=== PATIENT | female | born 1980 | race Caucasian/White ===

== ENCOUNTER → 2017-11-22 10:01 | Outpatient (CLI) | payer OTHER, SELFPAY ==
[2017-11-22 11:03] LABS: Absolute Lymphocyte Count 0.73 X10^3/ul (0.83-4.51); Absolute Neutrophil Count 3.2 X10^3/uL (2.0-7.7); Basophil# 0.03 X10^3/uL; Basophil% 0.7 % (0-1); Eosinophils% 4.4 % (0-5); Hematocrit 42.8 % (37-47); Hemoglobin 14.1 g/dl (12.0-15.0); Lymphocyte # 0.73 X10^3/ul (4.0); Lymphocyte % 16.2 % (19-41); Mean Corp Hgb Conc 32.9 g/gl (32-36); Mean Corpuscular Hgb 32.8 pg (27.0-32.0); Mean Corpuscular Volume 99.5 fL (81-99); Mean Platelet Vol. 9.2 fl (6.2-12.0); Monocyte# 0.37 X10^3/uL; Monocyte% 8.2 % (0-10); Neutrophil # 3.17 X10^3/uL (2.7-7.7); Neutrophil % 70.3 % (47-70); Platelet Count 367 K/mm3 (150-450); RBC Distribution Width CV 11.2 % (11.6-14.6); RBC Distribution Width SD 40.2 fl (35.1-43.9); White Blood Count 4.5 K/mm3 (4.4-11.0)
[2017-11-22 11:12] LABS: POSITIVE COUNT NO; POSITIVE DIFFERENTIAL NO; POSITIVE MORPHOLOGY NO
[2017-11-22 11:35] LABS: Anion Gap 4 (5-15); BUN 9 mg/dL (7-18); BUN/Creat Ratio 9.6 RATIO (10-20); Calcium,Total 8.9 mg/dL (8.5-10.1); Chloride 105 mmol/L (98-107); Creatinine, Serum 0.94 mg/dL (0.55-1.02); EST Glomerular Filtration Rate 71 mL/min (>60); Est Glom Filt Rate - Afr Amer 86 mL/min (>60); Glucose 93 mg/dL (74-106); Potassium 3.6 mmol/L (3.5-5.1); Sodium Level 138 mmol/L (136-145); T4 Free Direct 0.99 ng/dL (0.76-1.46); Thyroid Stim Hormone (TSH) 1.03 uIU/mL (0.358-3.74)
[2017-11-22 11:39] LABS: Erythrocyte Sedimentation Rate 5 mm/hr (0-20)
[2017-11-23 10:34] LABS: Thyroid Peroxidase AB 20 IU/mL (0-34)
[2017-11-24 09:50] LABS: T3 Total - Triiodothyronine 1.27 ng/mL (0.6-1.81)
[2017-11-25 08:39] LABS: ANTINUCLEAR ANTIBODIES DIRECT Negative (Negative)
== END ==
PROVIDERS: Family Provider Family Medicine; PCP Family Medicine; Referring Provider Dermatology Pediatric Dermatology; Visit Provider Dermatology Pediatric Dermatology
DX: L29.8 Other pruritus (principal); T80.69XA Other serum reaction due to other serum, initial encounter
CPT/HCPCS: 36415; 80048; 84439; 84443; 84480; 85025; 85652; 86038; 86376

== ENCOUNTER → 2018-01-30 13:47 | Outpatient (CLI) | payer OTHER, SELFPAY ==
[2018-02-04 11:30] LABS: HPV Reflexed? NOT INDICATED
--- OUTSIDE RECORDS SUMMARY | 2018-05-06 04:27 | XMS RPT_ITS ---
:1980 Author Organization OHIP Care Team Providers Name Role Phone VEGA FONTAINE DO Attending Unavailable PHYSICIAN, NONE Primary Care Unavailable Ale Medina Attending Unavailable PROVIDER, UNKNOWN Referring Unavailable No, PCP Primary Care Unavailable Carol, Ale Attending Unavailable PROVIDER, UNKNOWN Referring Unavailable No, PCP Primary Care Unavailable Tami Steen Attending Unavailable Tami Steen Attending Unavailable Tami Steen Referring Unavailable Vega Fontaine Primary Care Unavailable Woody Verma Attending Unavailable Tami Steen Referring Unavailable Ale Medina Attending Unavailable Carol Ale Referring Unavailable Vega Fontaine Primary Care Unavailable PROBLEMS PROBLEMS DATE TYPE CONDITION / CODE ATTENDING STATUS SOURCE 01/30/2018 Unknown Z12.4 - Encounter Tami Steen [facility] Repository cervix / Z12.4(ICD-10) 2017 Admitting Idiopathic Ale Medina [facility] Diagnosis urticaria / System L50.1(ICD-10) Repository 10/27/2017 Admitting Dermatitis, Ale Medina [facility] Diagnosis unspecified / System L30.9(ICD-10) Repository PROCEDURES PROCEDURES No Procedure Records FoundRESULTS RESULTS SURGERY VISIT REPORT Observed: 02/23/2018 Status: F Source: [place] 10:10 AM REPOSITORY [facility] [address] [place] [address] OFFICE VISIT Date of Service: 02/23/18 MR#: [id number] Acct: [id number] Name: LITO JAY Rep #: [id number] : 1980 Provider: Woody Verma MD Age/Sex: 37/F Location: [facility] Status: Signed Intake Vital Signs02/23/18 Height 5 ft 6 in 02/23/18 Weight: 140 lb 02/23/18 Body Mass Index (BMI) 22.6 Intake Visit Reasons: L Itchy Nipple Drag Out Man Required: No Is patient in pain?: No Allergies No Known Allergies Allergy (Verified 02/23/18 10:00) Medications l-Norgest/E.estradiol-E.estrad [Daysee 0.15-0.03-0.01 mg Tab] 1 ea PO 02/22/15 [History Confirmed 02/23/18] PFSH Surgical History Hx of tonsillectomy (Acute) Family History Grandmother Colon cancer Mother Cancer Social History Smoking Status: Never smoker alcohol intake: current alcohol intake frequency: a few times a week HPI HPI HPI: LITO JAY, is a 37 F who presents to the office today for 2-month history of itching of the left breast. She described this as the nipple and periareolar region. She says she is having no symptoms on the other side. She says the left breast is having no discharge or pain she only described as itching and it is intermittent. She has tried creams have not helped. She had a mammogram and ultrasound which were normal. ROS General General: No weight change, appetite, fatigue, colon cancer, breast cancer or weakness Breast Additional Details: Itching of the left breast Cardio Cardiovascular: No murmur, pacemaker, heart disease, atrial fibrillation, high blood pressure, heart attack, heart stent, palpitations, shortness of breat with exertion or chest pain Psych Psychiatric: No depression or anxiety Resp Respiratory: No shortness of breath, No sleep apnea, No cough, No COPD, No asthma, No emphysema, No wheezing Gastro Gastrointestinal: No abdominal pain, No nausea or vomiting, No diarrhea, No constipation, No blood in stool, No acid reflux, No hemorrhoids, No ulcers, No gallbladder problem, No black,tarry stools Nitin Hematologic: No blood thinners Neuro Neurologic: No weakness Exam Const General: cooperative Orientation: alert, oriented x3 Resp Effort AND Inspection: normal respiratory effort Auscultation: clear to auscultation bilaterally Cardio Rate: regular rate Rhythm: regular rhythm Heart Sounds: no murmurs GI Inspection: non-distended Palpation: soft, nontender Assessment AND Plan Problems 1. Breast pain, left N64.4 Plan 1. The patient has noted that she is having itching of the left breast. She says it is not severe. She is not having any dryness or drainage from the nipple. She does not describe any nipple discharge. She has no pain deep in the breast. Her other breast is asymptomatic. She had a mammogram and ultrasound which were normal with a BI- RADS score of 1. 2. At this time I do not believe an MRI is warranted given her very young age as well as the lack of any masses on physical exam. The breast appears symmetric to the other side with no skin or visible differences from the other side. At this time I recommend continued observation. Woody Verma MD Pager: [facility] [address] [place] [address], [address] [place] [address] Office: Coding Level of Care Code Off vis,new,level 3 Diagnoses Breast pain, left N64.4 02/23/18 1010 <Electronically signed by Woody Verma MD> Date Woody Verma MD [facility] Signature: Date (if applicable) CC: Tami Steen MD BREAST LIMITED Observed: 02/06/2018 Status: F Source: [place] 9:28 AM REPOSITORY [facility] Imaging Services [address] [place] [address] Breast Limited Unilateral MR#: [id number] Acct: [id number] Name: MARCELLEVEGA LUIBenny Woodward Rep #: [id number] : 1980 F 37 From: Eliud Poe MD PCP: Vega Fontaine DO Status: REG CLI Study: Breast Limited Unilateral Date of Exam: 02/06/18 Exam# [id number] Ordering Dr: Tami Steen MD STUDY: ULTRASOUND BREAST - LEFT REASON FOR EXAM: Female, 37 years old. Pruritus of the left nipple region. TECHNIQUE: Axial and longitudinal images of the LEFT breast were performed with a high resolution ultrasound transducer. COMPARISON: Comparison is made with prior mammogram done earlier today. FINDINGS: LEFT Breast: The periareolar region was examined by ultrasound. There is homogeneous fibroglandular tissue. No solid or cystic mass lesion is seen. Clinical correlation is recommended. US/Breast Limited Unilateral IMPRESSION: Unremarkable sonographic examination of the periareolar region. ASSESSMENT CATEGORY: BIRADS Category 1: Negative. A letter regarding these results will be sent to the patient by the facility within 30 days. Electronically Signed: Eliud Poe MD at 10:49 EST Tel [phone], Service support , CC: Tami Steen MD; Vega Fontaine DO Cyber Ops Planner: Signed DIAG MAMM W/CAD, Observed: 02/06/2018 Status: F Source: [place] BILAT 9:28 AM REPOSITORY [facility] Imaging Services [address] [place] [address] DIAG MAMM W/CAD, BILAT MR#: [id number] Acct: [id number] Name: LITO JAY Rep #: [id number] : 1980 F 37 From: Eliud Poe MD PCP: Vega Fontaine DO Status: REG CLI Study: DIAG MAMM W/CAD, BILAT Date of Exam: 02/06/18 Exam# [id number] Ordering Dr: Tami Steen MD MAMMOGRAPHY - BILATERAL DIAGNOSTIC REASON FOR EXAM: Female, 37 years old. Left nipple itchiness for 2 months. PERTINENT HISTORY: Non-contributory. TECHNIQUE: Digital bilateral breast kerrie (3D mammographic acquisition) in the CC and MLO projections. 2-D mediolateral oblique (MLO) and craniocaudad (CC) views of both breasts were obtained. CAD: Full Field Digital Mammography with Computer Added Detection was performed. COMPARISON: None. Baseline examination. FINDINGS: Breast Composition: The breasts are heterogeneously dense, which may obscure small masses. There are no dominant masses or suspicious calcifications. No other significant abnormalities are identified. BI/DIAG MAMM W/CAD, BILAT IMPRESSION: Negative diagnostic mammogram. With the patient's history of itchiness of the left periareolar region, correlation with ultrasound is recommended. ASSESSMENT CATEGORY: BIRADS Category 0: Incomplete. Need additional imaging evaluation. A letter regarding these results will be sent to the patient by the facility within 30 days. Approximately 10% of breast cancers are not detected by mammography. A normal mammogram should not delay biopsy of a clinically suspicious abnormality. 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 of containers..01 ThinPrep Vial TYPE CODE TESTS RESULT OUT OF RANGE REFERENCE UNITS LAB L7400.0800 . Normal DIAGN Comment Result Comment: NEGATIVE FOR INTRAEPITHELIAL LESION AND MALIGNANCY. LAB L7400.0900 . Normal ADEQ Comment Result Comment: Satisfactory for evaluation. Endocervical and/or squamous metaplastic cells (endocervical component) are present. LAB L7400.1400 . Normal PERFORM Comment Result Comment: Anjelica Mariee Horse Riding Coach Or Instructor LAB L7400.2575 . Normal TEST METHOD Comment Result Comment: This liquid based ThinPrep(R) pap test was screened with the use of an image guided system. LAB L7400.2600 . Normal . COMM LAB L7400.2700 . Normal PAPSMR Comment Result Comment: The Pap smear is a screening test designed to aid in the detection of premalignant and malignant conditions of the uterine cervix. It is not a diagnostic procedure and should not be used as the sole means of detecting cervical cancer. Both false-positive and false-negative reports do occur. LAB L7400.2800 . Normal HPV RFLX Comment Result Comment: The HPV DNA reflex criteria were not met with this specimen result therefore, no HPV testing was performed. Performed at: [facility] - [facility] [address] [place] [id number] Licensed Club Manager: Esperanza Romero MD, Phone: [phone] Performed By: #### L7400.0350 #### [facility] (refer to report for specific site) refer to report for address and phone number CBC W/DIFF, AUTOMATED Collected: 11/22/2017 Status: F Source: [place] 10:07 AM REPOSITORY TYPE CODE TESTS RESULT OUT OF RANGE REFERENCE UNITS LAB L100.1000 4.4-11.0 K/mm3 Normal WBC 4.5 LAB L100.1200 4.2-5.4 M/mm3 Normal RBC 4.30 LAB L100.1300 12.0-15.0 g/dl Normal HGB 14.1 LAB L100.1400 37-47 % Normal HCT 42.8 LAB L100.1500 81-99 fL High MCV 99.5 LAB L100.1600 27.0-32.0 pg High MCH 32.8 LAB L100.1700 32-36 g/gl Normal MCHC 32.9 LAB L100.1810 11.6-14.6 % Low RDW CV 11.2 LAB L100.1820 35.1-43.9 fl Normal RDW SD 40.2 LAB L100.1900 150-450 K/mm3 Normal PLT 367 LAB L100.2000 6.2-12.0 fl Normal MPV 9.2 LAB L100.2100 47-70 % High NEUT% 70.3 LAB L100.2200 19-41 % Low LY% 16.2 LAB L100.2300 0-10 % Normal MONO% 8.2 LAB L100.2400 0-5 % Normal EO% 4.4 LAB L100.2500 0-1 % Normal BASO% 0.7 LAB L100.2550 0.0-0.9 % Normal IM GRAN % 0.200 Result Comment: IG% - Immature Granulocytes (promyelocytes, myelocytes and metamyelocytes) > 1% indicates that a LEFT SHIFT is Present. LAB L100.2620 2.0-7.7 X10 3/uL Normal Absolute Neut 3.2 LAB L100.2720 0.83-4.51 X10 3/ul Low Absolute Lymph 0.73 Performed By: #### L100.0100, L101.9900 #### [facility] [address] [place], [address] ERYTHROCYTE SED RATE Collected: 11/22/2017 Status: F Source: [place] 10:07 AM REPOSITORY TYPE CODE TESTS RESULT OUT OF RANGE REFERENCE UNITS LAB L102.0000 0-20 mm/hr Normal SED RATE 5 Performed By: #### L100.0100, L101.9900 #### [facility] [address] [place], [address] BASIC METABOLIC Collected: 11/22/2017 Status: F Source: [place] PROFILE (BMP) 10:07 AM REPOSITORY TYPE CODE TESTS RESULT OUT OF RANGE REFERENCE UNITS LAB L501.0100 74-106 mg/dL Normal GLU 93 Result Comment: Please note revised GLUCOSE reference range effective 2017. LAB L501.1000 7-18 mg/dL Normal BUN 9 LAB L501.1100 0.55-1.02 mg/dL Normal CREAT,SERUM 0.94 Result Comment: The validity of the calculated GFR AND GFRAA in patients over 70 years has not been determined. Clinical correlation is essential. LAB L501.1110 >60 mL/min Normal EST GFR 71 Result Comment: Non- GFR Calc LAB L501.1115 >60 mL/min Normal EST GFR - AA 86 Result Comment: GFR Calc LAB L501.1300 10-20 RATIO Low BUN/CRE 9.6 LAB L501.2200 8.5-10.1 mg/dL Normal CA 8.9 LAB L501.5300 136-145 mmol/L Normal NA 138 LAB L501.5600 3.5-5.1 mmol/L Normal K 3.6 LAB L501.5900 98-107 mmol/L Normal CL 105 LAB L501.6100 21.0-32.0 mmol/L Normal CO2 29.0 LAB L501.6200 5-15 Low GAP 4 Performed By: #### L500.2500, L501.9520, L506.0400 #### [facility] [address] [place], [address] THYROID STIM HORMONE Collected: 11/22/2017 Status: F Source: [place] (TSH) 10:07 AM REPOSITORY TYPE CODE TESTS RESULT OUT OF RANGE REFERENCE UNITS LAB L501.9520 0.358-3.74 uIU/mL Normal TSH 1.03 Performed By: #### L500.2500, L501.9520, L506.0400 #### [facility] [address] [place], [address] T4 FREE DIRECT Collected: 11/22/2017 Status: F Source: [place] 10:07 AM REPOSITORY TYPE CODE TESTS RESULT OUT OF RANGE REFERENCE UNITS LAB L506.0400 0.76-1.46 ng/dL Normal T4 FREE 0.99 DIRECT Performed By: #### L500.2500, L501.9520, L506.0400 #### [facility] [address] [place], [place], [address] THYROID PEROXIDASE AB Collected: 11/22/2017 Status: F Source: [place] 10:07 AM REPOSITORY TYPE CODE TESTS RESULT OUT OF RANGE REFERENCE UNITS LAB L3300.6900 0-34 IU/mL Normal TPO AB 20 6676 Result Comment: Performed at: [facility] [id number] Licensed Club Manager: Valdemar Zuniga PhD, Phone: [phone] Performed By: #### L3300.6900 #### [facility]er to [facility] for specific site) refer to report for address and phone number T3 TOTAL - TRIIODOTHYRONINE Collected: 11/22/2017 Status: F Source: [place] 10:07 AM REPOSITORY TYPE CODE TESTS RESULT OUT OF RANGE REFERENCE UNITS LAB L501.9186 0.6-1.81 ng/mL Normal T3 Total 1.27 Performed By: #### L501.9186 #### [facility] [address] [place], [address] ANTINUCLEAR ANTIBODIES Collected: 11/22/2017 Status: F Source: [place] DIRECT 10:07 AM REPOSITORY TYPE CODE TESTS RESULT OUT OF RANGE REFERENCE UNITS LAB L3100.5475 Negative Normal Negative LEILANI-DIRECT Result Comment: Performed at: - [facility] [address], [place], [place] [id number] Licensed Club Manager: Valdemar Zuniga PhD, Phone: [phone] Performed By: #### L3100.5475 #### [facility] (refer to report for specific site) refer to report for address and phone number Observed: 2017 Status: F Source: [facility] SURGICAL PATHOLOGY 3:00 PM SYSTEM REPOSITORY [id number] [facility] PATHOLOGY AND [facility]ORATORY MEDICINE [address] [place] [address] FINAL SURGICAL PATHOLOGY REPORT NAME: LITO JAY N [id number] : 1980 37 Y F BILLING NO.: [id number] LOCATION: 1SPO PROCEDURE 2017 DATE: SURGEON: ALE MEDINA MD RECEIVED 11/24/2017 DATE: ATTENDING: ALE MEDINA MD REPORT DATE: 12/01/2017 COPIES TO: DIAGNOSIS: SKIN, LEFT ANTERIOR DISTAL THIGH, PUNCH (DIF) - NON-SPECIFIC GRANULAR COMPLEMENT C3 IMMUNOREACTIVITY ALONG THE BASEMENT MEMBRANE Comment: Direct antibody localization demonstrates 1+ immunoreactivity for complement C3 in a granular fashion along the basement membrane. This finding alone is non-specific. There is no evidence of immunoreactivity for immunoglobulins IgG, IgM, IgA, or fibrinogen on sections of frozen skin. JAW/JAW <Sign Out Dr. Gallagher> JANETH GAXIOLA M.D. CLINICAL INFORMATION: Erythematous evanescent linear edematous plaques, dermatographism SPECIMEN: SKIN GROSS DESCRIPTION: Skin left anterior distal thigh Received in polytransport buffer is a core of skin and underlying tissue 0.3 cm in depth and diameter. The specimen is entirely submitted for direct immunofluorescence. (1 ns, 1) JCK/SHYLA Disclaimer: The following statement applies to all immunohistochemistry, in situ hybridization, molecular studies, and immunofluorescence testing. The use of one or more reagents in the above tests is regulated as an analyte specific reagent (ASR). These tests were developed and their performance characteristics determined by the clinical laboratories of [facility]. They have not been cleared by the US Food and Drug Administration (FDA). The FDA has determined that such clearance or approval is not necessary. All the above immunostains were performed on paraffin embedded tissue. Appropriate positive and negative controls (where applicable) were run in parallel with the patient's specimen; these controls showed expected staining pattern, with acceptable intensity of staining. Immunohistochemical assays have not been validated on decalcified tissues. Results should be interpreted with caution given the raised possibility of false negativity on decalcified specimens. Professional Performing Location: [address] [address]. DEPARTMENT OF PATHOLOGY AND LABORATORY MEDICINE [place], [place] [address] Observed: 10/27/2017 Status: F Source: [facility] SURGICAL PATHOLOGY 3:00 PM SYSTEM REPOSITORY [id number] [facility] PATHOLOGY AND LABORATORY MEDICINE [facility] [place] [id number] FINAL SURGICAL PATHOLOGY REPORT NAME: LITO JAY : 1980 36 Y Saroj DOLAN NO.: [id number] LOCATION: 1SPO PROCEDURE 10/27/2017 DATE: SURGEON: IBRAHIMA SOMMER RECEIVED 10/28/2017 DATE: ATTENDING: ALE MEDINA MD REPORT DATE: 10/31/2017 COPIES TO: DIAGNOSIS: SKIN, RIGHT THIGH, PUNCH (DIF) - NON-SPECIFIC IMMUNOREACTIVITY FOR COMPLEMENT C3 AND IgM IN A GRANULAR DISTRIBUTION ALONG THE BASEMENT MEMBRANE ZONE. Comment: Direct antibody localization demonstrates non-specific weak (1+) immunoreactivity for complement C3 and immunoglobulin IgM in a granular distribution along the basement membrane zone. There is no evidence of immunoreactivity for immunoglobulins IgG, IgA, or fibrinogen on sections of frozen skin. The lack of immunoreactivity for IgA argues against the clinical impression of dermatitis herpetiformis. JAW/SHYLA <Sign Out Dr. Gallagher> JANETH GAXIOLA M.D. CLINICAL INFORMATION: Right thigh erythematous excoriated papules SPECIMEN: SKIN GROSS DESCRIPTION: Right thigh Received in polytransport buffer is a core of skin and underlying tissue measuring 0.3 cm in depth and diameter. The specimen is entirely submitted for direct immunofluorescence. (1 ns, 1) JCK/KMS1 Disclaimer: The following statement applies to all immunohistochemistry, in situ hybridization, molecular studies, and immunofluorescence testing. The use of one or more reagents in the above tests is regulated as an analyte specific reagent (ASR). These tests were developed and their performance characteristics determined by the clinical laboratories of [facility]. They have not been cleared by the US Food and Drug Administration (FDA). The FDA has determined that such clearance or approval is not necessary. All the above immunostains were performed on paraffin embedded tissue. Appropriate positive and negative controls (where applicable) were run in parallel with the patient's specimen; these controls showed expected staining pattern, with acceptable intensity of staining. Immunohistochemical assays have not been validated on decalcified tissues. Results should be interpreted with caution given the raised possibility of false negativity on decalcified specimens. Professional Performing Location: [place] [address]. DEPARTMENT OF PATHOLOGY AND LABORATORY MEDICINE [place], [place] [address] MRI SHOULDER W/O Observed: 03/21/2017 Status: F Source: [place] CONTRAST LEFT 3:00 PM FOUNDATION REPOSITORY ORIGINAL MRI SHOULDER W/O CONTRAST LEFT CLINICAL STATEMENT: LEFT SHOULDER PAIN COMPARISON: X-ray left shoulder 01/07/2017 TECHNIQUE: Multiplanar multisequence MRI of the left shoulder was performed without contrast. FINDINGS: The acromioclavicular joint is normal. There is a trace amount of fluid within the subacromial/subdeltoid space. The rotator cuff muscle bulk is normal in signal and morphology. Subscapularis tendon is within normal limits. The supraspinatus, infraspinatus, and teres minor tendons are intact. The long head of the biceps tendon is intact. There is no significant joint effusion. The humeral head is well-seated within the glenoid. On this nonarthrographic study, the glenoid labrum is intact. The glenohumeral articular cartilage is preserved. Prominent but nonpathologically enlarged lymph nodes seen in the left axilla. IMPRESSION: Mild subacromial/subdeltoid bursitis. I have personally reviewed the images of this examination and agree with the resident's findings and interpretation. Interpreted By: Calos Leach MD Preliminary Report By: Chris Harrison MD Electronically Signed By: Calos Leach MD Dictated Date: 03/21/2017 3:39:02 PM Prelim Date: 03/21/2017 3:47:14 PM Sign Date: 03/21/2017 4:37:28 PM ALLERGIES ALLERGIES DATE TYPE / CODE NAME / CODE REACTION SEVERITY SOURCE 02/23/2018 Drug No Known Unknown [facility] Allergy/4160 Allergies/F00 Hospital 76999(SNOMED 1299199(RXNOR Repository CT) M) ENCOUNTERS ENCOUNTERS ADMIT/DISCHARGE ACCOUNT NUMBER ADMITTING ENCOUNTER LOCATION SOURCE CLASS 02/23/2018/02/23/19 [id number] Ambulatory B[place]: [place] [facility] Repository 02/06/2018 [id number] Ambulatory [facility] ding:OPBI Repository 01/30/2018 [id number] [facility] ding:LABSPEC Repository 11/22/2017 [id number] [facility] ding:LAB Repository 2017 [id number] Ambulatory [facility] Repository 10/27/2017 [id number] Ambulatory [facility] Repository 03/21/2017/03/21/19 [id number] Ambulatory [address] ding:[facility] Repository PAYERS PAYERS ENCOUNTER GUARANTOR PAYER SUBSCRIBER SOURCE 02/23/2018 LITO Woodward Primary Insurance:MED LITO S Artie [id number] N MUTUAL TPAPolicy BEICHLERDOB: [facility] [place] Number: [id number], [place] [id number] Repository [address]Oit: (330) Date:5355-31-10PJ [phone] () [address], [place] [address]QH: CHECK WEBSITE 02/23/2018 Secondary NOT GIVENUNK Artie Insurance:SELF PAY [facility] Number: Effective Repository Date:2018-02-19 02/06/2018 LITO Woodward Primary Insurance:MED LITO S [place] [id number] N MUTUAL TPAPolicy BEICHLERDOB: [facility] [place] Number: [id number], [place] [id number] Repository [address]Scc: (330) Date:3156-02-55RL [phone] () [address]GEQPGDJBU, [place] [address]YQ: CHECK WEBSITE 02/06/2018 Secondary NOT GIVENUNK Artie Insurance:SELF PAY [facility] Number: Effective Repository Date:2018-01-30 01/30/2018 LITO S Primary Insurance:MED LITO S Artie [id number] N [facility] BEICHLERDOB: [facility] [place] Number: [id number], [place] [id number] Repository [address]Ebt: (330) Date:5127-99-03ME [phone] () [address]UT[place]OG, [place] [address]PD: CHECK WEBSITE 01/30/2018 Secondary NOT GIVENUNK Artie Insurance:SELF PAY [facility] Number: Effective Repository Date:2018-01-30 11/22/2017 LIOT S Primary Insurance:MED LITO S [place] [id number] N [facility] Number: [id number], [place] [id number] Repository [address]Ley: (330) Date:8609-76-13CM [phone] () [address]MDEYYJUWE, [place] [address]YO: CHECK WEBSITE 11/22/2017 Secondary NOT GIVENUNK Artie Insurance:SELF PAY [facility] Number: Effective Repository Date:2017-11-22 2017 lito Primary [facility] beichlerDOB: Insurance:Medical beichlerDOB: System [id number] [facility] [id number] [facility] [place] Number: Effective [place], [place] Date: [address]Zbk: (HP) 10/27/2017 lito Primary [facility] beichlerDOB: Insurance:Medical beichlerDOB: System [facility] [id number] Repository [place] Number: Effective Elie MS Date: [id number]: () 03/21/2017 LITO Singh Primary LITO Singh [facility] BEICHLERDOB: Insurance:MEDICAL BEICHLERDOB: [facility] [address] [place] [id number] [id number] Repository [place] [address]: [address] [facility] [place] [id number] [facility], [place] [address]Irs: [phone]) Date:2017-03-18 [id number]: () [id number] Name:BRUNO Mabry ()Tel: [phone], [place] [phone] () [id number]:
== END ==
PROVIDERS: Visit Provider Obstetrics & Gynecology
DX: Z12.4 Encounter for screening for malignant neoplasm of cervix (principal)
CPT/HCPCS: 88175; G0145

== ENCOUNTER → 2018-02-06 09:22 | Outpatient (CLI) | payer OTHER, SELFPAY ==
--- NOTE | 2018-02-06 09:27 | US_ITS ---
STUDY: ULTRASOUND BREAST - LEFT REASON FOR EXAM: Female, 37 years old. Pruritus of the left nipple region. TECHNIQUE: Axial and longitudinal images of the LEFT breast were performed with a high resolution ultrasound transducer. COMPARISON: Comparison is made with prior mammogram done earlier today. FINDINGS: LEFT Breast: The periareolar region was examined by ultrasound. There is homogeneous fibroglandular tissue. No solid or cystic mass lesion is seen. Clinical correlation is recommended. US/Breast Limited Unilateral IMPRESSION: Unremarkable sonographic examination of the periareolar region. ASSESSMENT CATEGORY: BIRADS Category 1: Negative. A letter regarding these results will be sent to the patient by the facility within 30 days. Electronically Signed: Eliud Poe MD at 10:49 EST Tel [phone], Service support ,
--- NOTE | 2018-02-06 09:27 | BI_ITS ---
MAMMOGRAPHY - BILATERAL DIAGNOSTIC REASON FOR EXAM: Female, 37 years old. Left nipple itchiness for 2 months. PERTINENT HISTORY: Non-contributory. TECHNIQUE: Digital bilateral breast kerrie (3D mammographic acquisition) in the CC and MLO projections. 2-D mediolateral oblique (MLO) and craniocaudad (CC) views of both breasts were obtained. CAD: Full Field Digital Mammography with Computer Added Detection was performed. COMPARISON: None. Baseline examination. FINDINGS: Breast Composition: The breasts are heterogeneously dense, which may obscure small masses. There are no dominant masses or suspicious calcifications. No other significant abnormalities are identified. BI/DIAG MAMM W/CAD, BILAT IMPRESSION: Negative diagnostic mammogram. With the patient's history of itchiness of the left periareolar region, correlation with ultrasound is recommended. ASSESSMENT CATEGORY: BIRADS Category 0: Incomplete. Need additional imaging evaluation. A letter regarding these results will be sent to the patient by the facility within 30 days. Approximately 10% of breast cancers are not detected by mammography. A normal mammogram should not delay biopsy of a clinically suspicious abnormality. Electronically Signed: Eliud Poe MD at 11:27 EST Tel [phone], Service support ,
== END ==
PROVIDERS: Family Provider Family Medicine; PCP Family Medicine; Referring Provider Obstetrics & Gynecology; Visit Provider Obstetrics & Gynecology
DX: C50.012 Malignant neoplasm of nipple and areola, left female breast (principal)
CPT/HCPCS: 76642; 77062; 77066; G0279

== ENCOUNTER → 2018-07-30 11:33 | Outpatient (CLI) | payer OTHER, SELFPAY ==
[2018-02-23 09:59] VITALS: BMI 22.6
[2018-07-30 14:03] LABS: Erythrocyte Sedimentation Rate 2 mm/hr (0-20)
[2018-07-30 14:05] LABS: Absolute Lymphocyte Count 2.24 X10^3/ul (0.83-4.51); Absolute Neutrophil Count 4.5 X10^3/uL (2.0-7.7); Basophil# 0.04 X10^3/uL; Basophil% 0.5 % (0-1); Eosinophil# 0.16 X10^3/uL; Eosinophils% 2.2 % (0-5); Hematocrit 43.1 % (37-47); Hemoglobin 14.4 g/dl (12.0-15.0); Lymphocyte # 2.24 X10^3/ul (4.0); Lymphocyte % 30.1 % (19-41); Mean Corp Hgb Conc 33.4 g/gl (32-36); Mean Corpuscular Volume 95.8 fL (81-99); Mean Platelet Vol. 9.7 fl (6.2-12.0); Monocyte% 6.7 % (0-10); Neutrophil # 4.48 X10^3/uL (2.7-7.7); Neutrophil % 60.4 % (47-70); Platelet Count 429 K/mm3 (150-450); RBC Distribution Width CV 11.7 % (11.6-14.6); RBC Distribution Width SD 40.5 fl (35.1-43.9); White Blood Count 7.4 K/mm3 (4.4-11.0)
[2018-07-30 14:09] LABS: POSITIVE COUNT NO; POSITIVE DIFFERENTIAL NO; POSITIVE MORPHOLOGY NO
[2018-07-30 14:29] LABS: AST(SGOT) 18 U/L (15-37); Alanine Aminotransfer ALT/SGPT 30 U/L (13-56); Albumin, Serum 4.6 g/dL (3.2-5.0); Alkaline Phosphatase 62 U/L (45-117); BUN 9 mg/dL (7-18); Bilirubin, Direct 0.19 mg/dL (0.00-0.30); Creatinine, Serum 0.82 mg/dL (0.55-1.02); EST Glomerular Filtration Rate 83 mL/min (>60); Est Glom Filt Rate - Afr Amer 101 mL/min (>60); Globulin 3.9 g/dL (2.2-4.2); Glucose 76 mg/dL (74-106); Protein, Total 8.5 g/dL (6.4-8.2); Rheumatoid Factor < 10.0 IU/mL (<15); Uric Acid 4.9 mg/dL (2.6-6.0)
[2018-07-30 15:01] LABS: Vitamin D,25 Hydroxy 49.5 ng/mL (29.95-100.01)
[2018-08-02 09:32] LABS: Thyroid Peroxidase AB 17 IU/mL (0-34)
== END ==
PROVIDERS: Family Provider Family Medicine; PCP Family Medicine; Referring Provider Specialist; Visit Provider Specialist
DX: L50.1 Idiopathic urticaria (principal); E55.9 Vitamin D deficiency, unspecified; E07.9 Disorder of thyroid, unspecified
CPT/HCPCS: 36415; 80076; 82306; 82565; 82947; 83520; 84443; 84520; 84550; 85025; 85652; 86038; 86376; 86431

== ENCOUNTER → 2019-08-17 10:06 | Outpatient (CLI) | payer OTHER, SELFPAY ==
[2018-02-23 09:59] VITALS: BMI 22.6
[2019-08-17 12:33] LABS: AST(SGOT) 16 U/L (15-37); Alanine Aminotransfer ALT/SGPT 22 U/L (13-56); Albumin, Serum 3.9 g/dL (3.2-5.0); Alkaline Phosphatase 49 U/L (45-117); Anion Gap 7 (5-15); BUN 11 mg/dL (7-18); BUN/Creat Ratio 12.2 RATIO (10-20); Calcium,Total 8.7 mg/dL (8.5-10.1); Chloride 104 mmol/L (98-107); Cholesterol 185 mg/dL (200); EST Glomerular Filtration Rate 75 mL/min (>60); Est Glom Filt Rate - Afr Amer 90 mL/min (>60); Globulin 3.8 g/dL (2.2-4.2); Glucose 84 mg/dL (74-106); High Density Lipoprotein 54 mg/dL; Potassium 3.7 mmol/L (3.5-5.1); Protein, Total 7.7 g/dL (6.4-8.2); Sodium Level 137 mmol/L (136-145); Thyroid Stim Hormone (TSH) 2.29 uIU/mL (0.358-3.74); Triglycerides 137 mg/dL; Very Low Density Lipoprotein 27 mg/dL (5-40)
== END ==
PROVIDERS: PCP Family Medicine; Referring Provider Family Medicine; Visit Provider Family Medicine
DX: Z13.220 Encounter for screening for lipoid disorders (principal); Z13.1 Encounter for screening for diabetes mellitus; G47.00 Insomnia, unspecified
CPT/HCPCS: 36415; 80053; 80061; 84443

== ENCOUNTER → 2020-01-03 16:24 | Outpatient (CLI) | payer OTHER, SELFPAY ==
[2018-02-23 09:59] VITALS: BMI 22.6
== END ==
PROVIDERS: PCP Family Medicine; Visit Provider Family Medicine
DX: Z20.828 Contact with and (suspected) exposure to other viral communicable diseases (principal)
CPT/HCPCS: 87635; U0003

== ENCOUNTER → 2020-05-22 16:26 | Outpatient (CLI) | payer OTHER, SELFPAY ==
[2018-02-23 09:59] VITALS: BMI 22.6
--- NOTE | 2020-05-22 16:30 | RAD_ITS ---
STUDY: X-RAY - LEFT KNEE REASON FOR EXAM: Female, 39 years old. KNEE PAIN TECHNIQUE: 4 view(s) of the knee. COMPARISON: None. FINDINGS: No acute fracture, dislocation or osseous destruction. No significant joint space narrowing. No significant productive changes. Small volume joint effusion. No significant swelling. RAD/Knee 4 or More Views IMPRESSION: Left knee intact Small-volume joint effusion Electronically Signed: Daniel Garcia DO at 9:13 EDT Tel , Service support ,
== END ==
PROVIDERS: PCP Family Medicine; Referring Provider Family Medicine; Visit Provider Family Medicine
DX: M25.562 Pain in left knee (principal)
CPT/HCPCS: 73564

== ENCOUNTER → 2020-05-23 15:20 | Outpatient (CLI) | payer OTHER, SELFPAY ==
[2018-02-23 09:59] VITALS: BMI 22.6
[2020-05-27 09:00] LABS: HPV APTIMA, High Risk Negative (Negative)
== END ==
PROVIDERS: PCP Family Medicine; Visit Provider Student in an Organized Health Care Education/Training Program
DX: Z12.4 Encounter for screening for malignant neoplasm of cervix (principal)
CPT/HCPCS: 87624; 88175; G0145

== ENCOUNTER 2021-03-15 10:04 | Outpatient (CLI) | payer OTHER, SELFPAY ==
--- NOTE | 2021-03-15 10:06 | RAD_ITS ---
STUDY: X-RAY - LUMBAR SPINE REASON FOR EXAM: Female, 40 years old. ACUTE BACK PAIN TECHNIQUE: 4 view(s) of the lumbar spine were obtained. COMPARISON: None FINDINGS: Normal lumbar lordosis. There is no substantial scoliosis. There is a normal alignment of the vertebrae. No vertebral body fracture. No pars defect. Intervertebral disc spaces are preserved. Facet joints are unremarkable. No paraspinal soft tissue density RAD/L/S Spine Min 4 Views IMPRESSION: Normal x-ray examination of the lumbar spine. Electronically Signed: Horace Leon MD at 1:13 EST ,
== END 2021-03-15 23:59 | disposition short-term general hospital (02) ==
LOC: MTRAD 10:05
PROVIDERS: Referring Provider Family Medicine; Visit Provider Family Medicine
DX: M54.50 Low back pain, unspecified (principal)
CPT/HCPCS: 72100; 72110

== ENCOUNTER 2021-05-01 16:18 | Outpatient (CLI) | payer OTHER, SELFPAY ==
[2021-05-01 18:01] LABS: Erythrocyte Sedimentation Rate 3 mm/hr (0-30)
[2021-05-01 18:03] LABS: Hematocrit 41.5 % (37-47); Hemoglobin 14.4 g/dL (12.0-15.0); Mean Corp Hgb Conc 34.7 g/dL (32-36); Mean Corpuscular Hgb 32.8 pg (27.0-32.0); Mean Corpuscular Volume 94.5 fL (81-99); Mean Platelet Vol. 9.4 fl (6.2-12.0); Platelet Count 424 K/mm3 (150-450); RBC Distribution Width CV 11.4 % (11.6-14.6); RBC Distribution Width SD 39.3 fl (35.1-43.9); Red Blood Count 4.39 M/mm3 (4.2-5.4); White Blood Count 6.3 K/mm3 (4.4-11.0)
[2021-05-01 18:30] LABS: Thyroid Stim Hormone (TSH) 1.12 uIU/mL (0.358-3.74)
[2021-05-03 17:10] LABS: ANTINUCLEAR ANTIBODIES DIRECT Negative (Negative)
== END 2021-05-01 23:59 | disposition home or self-care (01) ==
LOC: MTLAB 16:20
PROVIDERS: PCP Registered Nurse; Referring Provider Registered Nurse; Visit Provider Registered Nurse
DX: R09.89 Other specified symptoms and signs involving the circulatory and respiratory systems (principal)
CPT/HCPCS: 36415; 84443; 85027; 85652; 86038

== ENCOUNTER → 2022-01-09 | Outpatient (CLI) | payer OTHER, SELFPAY ==
[2022-01-09 08:39] LABS: Lyme Ab Screen Interpretation REF LAB
[2022-01-09 10:51] LABS: CRP 3.16 mg/L (0.0-3.0); Rheumatoid Factor < 10.0 IU/mL (<15)
[2022-01-09 10:53] LABS: Erythrocyte Sedimentation Rate 4 mm/hr (0-30)
[2022-01-10 07:53] LABS: Lyme Scn Total Ab w/Rflx Negative (Negative)
[2022-01-11 19:38] LABS: ANTINUCLEAR ANTIBODIES DIRECT Negative (Negative)
== END | disposition home or self-care (01) ==
LOC: MTLAB 08:35
PROVIDERS: PCP Family Medicine; Referring Provider Nurse Practitioner Family; Visit Provider Nurse Practitioner Family
DX: M25.50 Pain in unspecified joint (principal)
CPT/HCPCS: 36415; 85652; 86038; 86140; 86431; 86618

== ENCOUNTER 2022-03-27 12:55 | Emergency (ER) | payer OTHER, SELFPAY ==
[2022-03-27 12:56] VITALS: BP 156/101; PULSE 100; RESP 16; TEMP 36.6; O2SAT 100; BMI 22.1
--- NOTE | 2022-03-27 13:26 | ED.RN ---
PT'S SPOUSE STATES WE ARE JUST GOING TO [place]. PT AMBULATED OUT OF DEPT WITHOUT DIFFICULTY.
== END 2022-03-27 13:57 | disposition left against medical advice (07) ==
LOC: ED 13:58
PROVIDERS: PCP Family Medicine
DX: R69 Illness, unspecified (principal)

== ENCOUNTER → 2022-04-26 | Outpatient (CLI) | payer OTHER, SELFPAY ==
[2022-04-26 17:51] LABS: Absolute Lymphocyte Count 1.44 X10^3/uL (0.83-4.51); Absolute Neutrophil Count 4.3 X10^3/uL (2.0-7.7); Basophil# 0.07 X10^3/uL; Basophil% 1.1 % (0-1); Eosinophil# 0.17 X10^3/uL; Eosinophils% 2.6 % (0-5); Hematocrit 39.4 % (37-47); Hemoglobin 13.5 g/dL (12.0-15.0); Lymphocyte # 1.44 X10^3/ul (0.83-4.51); Lymphocyte % 22.1 % (19-41); Mean Corp Hgb Conc 34.3 g/dL (32-36); Mean Corpuscular Hgb 32.8 pg (27.0-32.0); Mean Corpuscular Volume 95.9 fL (81-99); Mean Platelet Vol. 9.5 fl (6.2-12.0); Monocyte# 0.53 X10^3/uL; Monocyte% 8.1 % (0-10); NRBC Flagged by Analyzer 0 % (0-5); Neutrophil # 4.29 X10^3/uL (2.7-7.7); Neutrophil % 65.8 % (47-70); Platelet Count 386 K/mm3 (150-450); RBC Distribution Width CV 11.6 % (11.6-14.6); RBC Distribution Width SD 40.7 fl (35.1-43.9); Red Blood Count 4.11 M/mm3 (4.2-5.4); White Blood Count 6.5 K/mm3 (4.4-11.0)
[2022-04-26 18:23] LABS: ALB/GLOB Ratio 1.1 RATIO (0.9-2.4); AST(SGOT) 19 U/L (15-37); Alanine Aminotransfer ALT/SGPT 26 U/L (13-56); Albumin, Serum 4.1 g/dL (3.2-5.0); Alkaline Phosphatase 41 U/L (45-117); Anion Gap 12 (5-15); BUN 15 mg/dL (7-18); BUN/Creat Ratio 20.2 RATIO (10-20); Calcium,Total 9.5 mg/dL (8.5-10.1); Chloride 102 mmol/L (98-107); Creatinine, Serum 0.74 mg/dL (0.55-1.02); EST Glomerular Filtration Rate 92 mL/min (>60); Est Glom Filt Rate - Afr Amer 111 mL/min (>60); Globulin 3.7 g/dL (2.2-4.2); Glucose 78 mg/dL (74-106); Potassium 3.7 mmol/L (3.5-5.1); Protein, Total 7.8 g/dL (6.4-8.2); Sodium Level 136 mmol/L (136-145); Thyroid Stim Hormone (TSH) 1.77 uIU/mL (0.358-3.74)
== END | disposition home or self-care (01) ==
LOC: MFPLAB 16:53
PROVIDERS: PCP Family Medicine; Visit Provider Family Medicine
DX: R42 Dizziness and giddiness (principal); G47.00 Insomnia, unspecified
CPT/HCPCS: 36415; 80053; 84443; 85025

== ENCOUNTER → 2022-08-01 | Outpatient (CLI) | payer OTHER, SELFPAY ==
--- NOTE | 2022-08-01 08:36 | BI_ITS ---
MAMMOGRAPHY - BILATERAL SCREENING REASON FOR EXAM: Female, 41 years old. Routine annual screening examination. PERTINENT HISTORY: Non-contributory. TECHNIQUE: Digital bilateral breast yris (3D mammographic acquisition) in the CC and MLO projections. 2-D mediolateral oblique (MLO) and craniocaudad (CC) views of both breasts were obtained. CAD: Full Field Digital Mammography with Computer Added Detection was performed. COMPARISON: Comparison is made with prior study dated February 06, 2018. FINDINGS: Breast Composition: The breasts are heterogeneously dense, which may obscure small masses. There are no dominant masses or suspicious calcifications. No other significant abnormalities are identified. There has been no significant change since the prior study. BI/SCRN MAMM (CAD)W/YRIS BILAT IMPRESSION: Stable bilateral screening mammogram. Yearly follow-up mammogram recommended. (A) ASSESSMENT CATEGORY: BIRADS Category 1: Negative. A letter regarding these results will be sent to the patient by the facility within 30 days. Approximately 10% of breast cancers are not detected by mammography. A normal mammogram should not delay biopsy of a clinically suspicious abnormality. [id number] Electronically Signed: Eliud Poe MD at 9:39 EDT ,
== END | disposition home or self-care (01) ==
LOC: OPBI 08:34
PROVIDERS: PCP Family Medicine; Referring Provider Nurse Practitioner Women's Health; Visit Provider Nurse Practitioner Women's Health
DX: Z12.31 Encounter for screening mammogram for malignant neoplasm of breast (principal); Z12.4 Encounter for screening for malignant neoplasm of cervix
CPT/HCPCS: 77063; 77067

== ENCOUNTER 2022-09-26 09:30 | Outpatient (RCR) | payer OTHER, SELFPAY ==
--- NOTE | 2022-08-23 12:50 | HP.PTEVAL_ITS ---
Patient's Visit Information Visit Information Visit Information: LITO JAY is a 41 year old F referred to Physical Therapy by Patsy Zapata DO with a diagnosis of Tension BIRCH. Date of Evaluation: 08/23/22 Physical Therapist: Daniel Mendoza, DPT, OCS, CSCS Visit Plan Frequency: 2x /Week Duration: 4-6 Weeks Plan: 2x/week for 4 weeks for... 1. ensure stretching at home of neck 2. STM and stretchi neck muscle with postural emphasis relaxing UT. 3. relaxation techniques 4. teach neck strength, pt already working out in gym, will need specific neck strength and to make sure her pulling exercises are appropriate posture and muscle recruitment. Subjective Subjective: I get migraines and possibly tension BIRCH. Got prescription for mi graines. She can tell the difference between them. Gets tension BIRCH 2x/week. Feels tense in neck and goes up into front of head. Likely is stress related. Sitting alot can make her worse. Driving in car can make it worse. Noticably worse on sitting days. Getting these her whole life. Tried meds and chiropractor in past, prozac(helped but doesn't want it). Chiro helpful in the moment. 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 Hobiies include ex, reading. Exercise includes cardio and weight lifting, dumbells and bands. No difference after ex but it would make it worse. Basic ADLs are getting done. Is a high stress person and worries about everything. Pain Tension BIRCH: Pain Intensity (Out of 10): 0 Pain Intensity Range: 0 and 3 Comment: latest last week. Objective Objective: Forward head posture and tends to look down. retraction is painful but other p=motions cervical are full UE aROM full and painfree. Sensation UE normal to gross light touch. reflexes 2/3 bi and tri Obvious tightness in UT, subocc as they are visible with movement and tension. - c./s compression test rpeated protrusion : NE repeated retraction : NE cervical retraction: NE Notables is tightness in neck, Forward head looking down and pain with retraction. Balance/Special Test Scores Oswestry Neck Score: 5 Goals Goal 1:: pt exhibit neutral spine posture without VC consistently Goal Time Frame: 4-6 Weeks Goal 2:: Pt feel tension BIRCH are 50% improved to 1x/week and 1/10 at worst. Goal Time Frame: 4-6 Weeks Goal 3:: i appropriate managemnt of activity with stretch, posture, strength and [id number] management techniques. Goal Time Frame: 4-6 Weeks Goal 4:: Neck oswesstry 2 or better. Goal Time Frame: 4-6 Weeks Rehabilitation Potential Physical Therapy Diagnosis: Tension BIRCH likely postural and stress related. Rehabilitation Potential: Fair Anticipated Interventions Patient/Client Instruction: Educate patient on: Condition and Plan of Care For the Purpose of:: To decrease pain, To increase ROM, To improve nutrient delivery to tissue, To improve muscle performance and motor function and To increase tolerance to activity/condition/position Therapeutic Exercise to Include: Strength training, Postural training, Flexibilty training, Passive ROM and Active ROM For the Purpose of:: To decrease pain, To increase ROM, To improve nutrient delivery to tissue, To improve muscle performance and motor function, To increase tolerance to activity/condition/position and To improve ability of physical actions for home/community/work/leisure Manual Therapy Techniques to Include: Mobilization and Soft tissue mobilization For the Purpose of:: To decrease pain, To increase ROM, To improve muscle performance and motor function, To increase tolerance to activity/condition/position, To improve ability of physical actions for home/community/work/leisure and To improve gait and locomotor functions Text: Thank you for the opportunity to evaluate your patient. For Medicare and Medicare HMO plans, please review the plan of care and approve it. It will need to be FAXED BACK to us at [phone] for Medicare purposes. For Medicare only, by signing this I certify the plan of care. Please let me know if there are questions or concerns regarding this plan of care. Physician Signature: Date:
--- NOTE | 2022-09-26 10:19 | HP.PTDCSUM ---
Discharge Summary D/C summary: It has been my pleasure to treat LITO JAY referred by Patsy Zapata DO, with the diagnosis of Tension BIRCH for a total of 9 visit(s). Discharge Date: 09/26/22 Please see the following information for a summary of their discharge status. Subjective Subjective: Defintiely better. Less frequent tension BIRCH. My awareness is much better of posture and tension. Neck pain and stiffness is present from working muscles. BIRCH this week only one to 3/10 and gone with ibuprofen. Will see doctor at some time in /October. HEP: stretches and band. Consciousness of psoture. Pain Tension BIRCH: Pain Intensity (Out of 10): 2 Overall Improvement % Improvement: 50 Objective Objective/Function: Full aROM cervical spine without pain today, full UE AROM. Improved consciousness of posture. Goals Goal 1:: pt exhibit neutral spine posture without VC consistently Goal Progress: Goal Met Goal 2:: Pt feel tension BIRCH are 50% improved to 1x/week and 1/10 at worst. Goal Progress: Progressing Goal 3:: i appropriate managemnt of activity with stretch, posture, strength and [id number] management techniques. Goal Progress: Goal Met Goal 4:: Neck oswesstry 2 or better. Goal Progress: Progressing Plan Plan: d/c D/C Information d/c sentence: If there are questions or concerns regarding this patient's physical therapy, please feel free to call me at [phone]. Thank you for the referral of this patient. Sincerely, Daniel Mendoza, DPT, OCS, CSCS Balance/Gait/Functional tests Balance/Special Test Scores Oswestry Neck Score: 4
== END 2022-09-26 10:40 | disposition home or self-care (01) ==
LOC: PT 09:30
PROVIDERS: PCP Family Medicine; Referring Provider Family Medicine; Visit Provider Family Medicine
DX: G44.209 Tension-type headache, unspecified, not intractable (principal)
CPT/HCPCS: 97110; 97140; 97161; 97164

== ENCOUNTER → 2023-07-21 | Outpatient (CLI) | payer OTHER, SELFPAY ==
--- NOTE | 2023-07-21 06:44 | MRI_ITS ---
STUDY: MRI RIGHT KNEE REASON FOR EXAM: Female, 42 years old. SHARP Pain WHEN KNEE IS IN CERTAIN POSITIONS, SKIING INJURY 2 MONS AGO TECHNIQUE: Standardized fat and water weighted pulse sequences were obtained in all 3 orthogonal planes. COMPARISON: X-ray of the right knee dated June 20, 2023 FINDINGS: Mild edema is present at the posterior periphery of the medial femoral condyle with mild cortical thinning consistent with a bony contusion or sequela from an impaction injury. No fracture line or displaced fragment is seen. Normal medial meniscus. Normal hyaline cartilage of the medial femorotibial compartment. Normal medial tibial plateau. Normal medial collateral ligamentous complex (MCL). Normal distal semimembranosus, gracilis and semitendinosus tendons. Normal lateral meniscus. Normal hyaline cartilage of the lateral femorotibial compartment. Normal lateral femoral condyle and tibial plateau. Normal proximal tibiofibular articulation. Normal lateral collateral (fibular) ligament. Normal popliteus tendon. Normal biceps femoris tendon. There is high-grade partial tearing of the central and anterior medial fibers of the ACL with associated loss of fiber morphology and swelling. Normal posterior cruciate ligament (PCL). Normal congruent patellofemoral articulation. Normal hyaline cartilage of the patellofemoral compartment. Normal medial and lateral patellar retinaculum. Normal quadriceps tendon. Normal patellar tendon. Normal Hoffa''s fat pad. There is a small volume joint effusion. The soft tissues are unremarkable. The otherwise visualized osseous structures are unremarkable. MRI/Lower Ext Joint Only (Routine) IMPRESSION: 1. Mild edema is present at the posterior periphery of the medial femoral condyle with mild cortical thinning consistent with a bony contusion or sequela from an impaction injury. No fracture line or displaced fragment is seen. 2. High-grade partial tearing of the central and anterior medial fibers of the ACL with associated loss of fiber morphology and swelling Electronically Signed: Rashid Matos MD at 10:38 EDT ,
== END | disposition home or self-care (01) ==
PROVIDERS: PCP Dermatology; Referring Provider Orthopaedic Surgery Sports Medicine; Visit Provider Orthopaedic Surgery Sports Medicine
DX: M25.561 Pain in right knee (principal)
CPT/HCPCS: 73721

== ENCOUNTER 2023-08-27 16:30 | Outpatient (RCR) | payer OTHER, SELFPAY ==
--- NOTE | 2023-08-04 16:09 | HP.PTEVAL_ITS ---
Patient's Visit Information Visit Information Visit Information: LITO JAY is a 42 year old F referred to Physical Therapy by Dr. Gustavo Field MD with a diagnosis of R partial ACL tear/R knee pain. Date of Evaluation: 08/04/23 Physical Therapist: LUIS Carolina Visit Plan Frequency: 2x /Week Duration: 3 Weeks Plan: 2X/ week for 3 weeks for progressive strength of the R knee, co contraction and stability of the R knee (pt ski's and works out daily) HEP: no touch 4 ways SLR and wall slides to 90 degrees Subjective Subjective: In April she was skii and she hurt her knee. They did an MRI and is showed a partial tear. She has a follow up appointment but might have to push it back because she missed her PT appt. She has pain if she tries to squat, if she tries to sit on her knees, lunges etc. It does not bother her with stairs. Her knee does not stop from hyperextension on the R side. She is sleeping ok. She has some give out feeling with hyperextension. It swelled when she injured it. 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 For Medicare and Medicare HMO plans, please review the plan of care and approve it. It will need to be FAXED BACK to us at [phone] for Medicare purposes. For Medicare only, by signing this I certify the plan of care. Please let me know if there are questions or concerns regarding this plan of care. Physician Signature: Date:____
--- NOTE | 2023-08-27 17:12 | HP.PTREVAL ---
Re-Evaluation Intro: Dr. Gustavo Field MD, It has been my pleasure to treat LITO JAY over the last 7 visits for R partial ACL tear/R knee pain. Please see the progress note below for an update on the physical therapy plan of care! Subjective Subjective: She feels that she was sore after PT. It still bothers her when she does too much or gets into a weird position. She walked 2 miles today and it felt pretty good doing that. She feels her knee is loose when she straightens her knee in WB on the R. 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 Objective Objective/Function: R knee AROM at time of the eval 137 and L 142 and today R knee AROM knee flexion 140 Plan Plan Plan: Pt to go back to for a possible surgery plan and then possible see us in PT every week to work on single stability exercises to be able to ski. She will look for teal band to replicated what we are doing here. 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 Sincerely, Julia Castro, MPT
--- NOTE | 2023-11-18 07:51 | HP.PTDCSUM ---
Discharge Summary D/C summary: It has been my pleasure to treat LITO JAY referred by Dr. Gustavo Field MD, with the diagnosis of R partial ACL tear/R knee pain for a total of 7 visit(s). Discharge Date: 11/18/23 Please see the following information for a summary of their discharge status. Subjective Subjective: She feels that she was sore after PT. It still bothers her when she does too much or gets into a weird position. She walked 2 miles today and it felt pretty good doing that. She feels her knee is loose when she straightens her knee in WB on the R. 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 She will look for teal band to replicated what we are doing here. D/C Information Discharge Comments: DC PT d/c sentence: If there are questions or concerns regarding this patient's physical therapy, please feel free to call me at [phone]. Thank you for the referral of this patient. Sincerely, Julia Castro, MPT Balance/Gait/Functional tests Balance/Special Test Scores Lower Extremity Functional Score: 62 Improvement % Improvement: 25
== END 2023-08-27 19:00 | disposition home or self-care (01) ==
LOC: PT 16:30
PROVIDERS: PCP Dermatology; Visit Provider Orthopaedic Surgery Sports Medicine
DX: S83.511D Sprain of anterior cruciate ligament of right knee, subsequent encounter (principal); M25.561 Pain in right knee
CPT/HCPCS: 97110; 97161; 97530

== ENCOUNTER → 2023-10-27 | Outpatient (CLI) | payer OTHER, SELFPAY ==
--- NOTE | 2023-10-27 10:39 | BI_ITS ---
MAMMOGRAPHY - BILATERAL SCREENING 3-D TOMOSYNTHESIS REASON FOR EXAM: Female, 42 years old. SCREENING PERTINENT HISTORY: No significant family history. TECHNIQUE: 2-D mammograms and 3-D Tomosynthesis of the breast (s) were performed. CAD was performed. COMPARISON: 08/02/2022 FINDINGS: The breast composition is heterogeneously dense that can obscure small breast masses. Scattered benign calcifications are seen. No dense spiculated masses or suspicious microcalcifications are identified. No architectural distortion is identified. There is no skin thickening or retraction. There has been no significant change since the prior study. BI/SCRN MAMM (CAD)W/YRIS BILAT IMPRESSION: No mammographic signs of malignancy. Routine yearly mammograms recommended. ASSESSMENT CATEGORY: BIRADS Category 1: Negative. A letter regarding these results will be sent to the patient by the facility within 30 days. FOLLOW UP RECOMMENDATION: Yearly follow up mammogram recommended. (A) Approximately 10% of breast cancers are not detected by mammography. A normal mammogram should not delay biopsy of a clinically suspicious abnormality. Electronically Signed: Maco Lopez MD at 15:10 EDT ,
== END | disposition home or self-care (01) ==
PROVIDERS: PCP Family Medicine; Referring Provider Family Medicine; Visit Provider Family Medicine
DX: Z12.31 Encounter for screening mammogram for malignant neoplasm of breast (principal)
CPT/HCPCS: 77063; 77067

== ENCOUNTER → 2024-05-10 | Outpatient (CLI) | payer OTHER, SELFPAY ==
[2024-05-10 15:29] LABS: Absolute Lymphocyte Count 1.55 X10^3/uL (0.83-4.51); Absolute Neutrophil Count 6.5 X10^3/uL (2.0-7.7); Basophil# 0.08 X10^3/uL; Basophil% 0.9 % (0-1); Eosinophil# 0.28 X10^3/uL; Eosinophils% 3.1 % (0-5); Hematocrit 39.6 % (37-47); Hemoglobin 13.4 g/dL (12.0-15.0); Lymphocyte # 1.55 X10^3/ul (0.83-4.51); Lymphocyte % 17.3 % (19-41); Mean Corp Hgb Conc 33.8 g/dL (32-36); Mean Corpuscular Hgb 31.8 pg (27.0-32.0); Mean Corpuscular Volume 94.1 fL (81-99); Mean Platelet Vol. 9.7 fl (6.2-12.0); Monocyte# 0.52 X10^3/uL; Monocyte% 5.8 % (0-10); NRBC Flagged by Analyzer 0 % (0-5); Neutrophil # 6.52 X10^3/uL (2.7-7.7); Neutrophil % 72.7 % (47-70); Platelet Count 432 K/mm3 (150-450); RBC Distribution Width CV 11.3 % (11.6-14.6); RBC Distribution Width SD 38.4 fl (35.1-43.9); Red Blood Count 4.21 M/mm3 (4.2-5.4)
[2024-05-10 23:59] LABS: Vitamin D,25 Hydroxy 53.7 ng/mL (30-100)
[2024-05-11 00:12] LABS: ALB/GLOB Ratio 1.5 RATIO (0.9-2.4); AST(SGOT) 18 U/L (<=31); Alanine Aminotransfer ALT/SGPT 13 U/L (<=34); Albumin, Serum 4.4 g/dL (3.5-5.0); Alkaline Phosphatase 53 U/L (35-104); Anion Gap 13 (5-15); BUN 10 mg/dL (4-19); Calcium,Total 9.6 mg/dL (7.6-11.0); Chloride 102 mmol/L (98-108); Creatinine, Serum 0.76 mg/dL (0.70-1.20); EST Glomerular Filtration Rate 101 (>60); Glucose 85 mg/dL (70-99); Potassium 4.5 mmol/L (3.3-5.1); Protein, Total 7.4 g/dL (5.9-8.4); Sodium Level 137 mmol/L (133-145); Total Bilirubin 0.53 mg/dL (0.00-1.30)
[2024-05-11 01:14] LABS: Cholesterol 190 mg/dL (<=200); High Density Lipoprotein 73 mg/dL; Low Density Lipoprotein Calc. 99 mg/dL; Triglycerides 91 mg/dL; Very Low Density Lipoprotein 18 mg/dL (5-40); cholesterol:hdl ratio screen 2.62
== END | disposition home or self-care (01) ==
LOC: MTLAB 12:35
PROVIDERS: PCP Family Medicine; Referring Provider Family Medicine; Visit Provider Family Medicine
DX: Z13.1 Encounter for screening for diabetes mellitus (principal); Z13.220 Encounter for screening for lipoid disorders; R53.83 Other fatigue
CPT/HCPCS: 36415; 80053; 80061; 82306; 84443; 85025

== ENCOUNTER 2024-07-05 08:00 | Outpatient (RCR) | payer OTHER, SELFPAY ==
--- NOTE | 2024-02-09 16:01 | HP.PTEVAL_ITS ---
Patient's Visit Information Visit Information Visit Information: LITO JAY is a 43 year old F referred to Physical Therapy by Nghia Shahid MD with a diagnosis of R ACL repair 02/03/24. Date of Evaluation: 02/06/24 Physical Therapist: Stephan Burroughs, PT, ATC Visit Plan Frequency: 2-3x /Week Duration: 4-6 Weeks Plan: Follow protocol Subjective Subjective: DOS: 02/03/24. Pt had her R ACL repaired at that time. Pt reports she had a BTB repair. Pt notes her pain is not horrible today. Pt notes if she waks for a long period of time, her R knee will start to throb. Pt reports she has been icing her knee a lot to control the pain. Pt reports she is an avid skier, and notes that is the reason she had this surgery, to make sure she would be able to ski again in the future. Pt reports tingling in her R LE surrounding her knee. Pt denies any R LE numbness. Pt reports she has 3 steps into her house that she has to negotiate one step at a time. 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 Pt reports she also likes to go on hikes, and would like to be able to do that again. 3/10 pain at rest, 9/10 pain at worst. Sleep difficulty secondary to pain. Pain R knee: Pain Intensity (Out of 10): 3 Pain Intensity Range: 9 Objective Objective: Neuro: B LE sensation is WNL to light touch TU sec Observation: Unable to observe incisions today secondary to clothing. No signs of infection in LE ROM: L knee 0-140 ; R knee 0-15-65 degrees MMT: L knee flex= 34 , ext= 38 #F; R LE not tested. Balance/Special Test Scores Lower Extremity Functional Score: 52 Goals Goal 1:: Decrease R knee pain x 50% to aid with sleep Goal Time Frame: 6-8 Weeks Goal 2:: Increase R knee ROM x 50 degrees to aid with ambulation Goal Time Frame: 6-8 Weeks Goal 3:: Increase R knee strength x 90% L knee to aid with stair negotiation Goal Time Frame: 6-8 Weeks Goal 4:: I with HEP Goal Time Frame: 6-8 Weeks Rehabilitation Potential Physical Therapy Diagnosis: Pt has R knee pain, weakness, and limited ROM secondary to R ACL repair Rehabilitation Potential: Good Anticipated Interventions Patient/Client Instruction: Educate patient on: Condition and Plan of Care For the Purpose of:: To improve self management Therapeutic Exercise to Include: Strength training, Endurance training, Flexibilty training, Gait and locomotor training, Passive ROM, Active ROM and Dynamic Lumbar Stabilization For the Purpose of:: To decrease pain, To increase ROM and To improve muscle performance and motor function Text: Thank you for the opportunity to evaluate your patient. For Medicare and Medicare HMO plans, please review the plan of care and approve it. It will need to be FAXED BACK to us at [phone] for Medicare purposes. For Medicare only, by signing this I certify the plan of care. Please let me know if there are questions or concerns regarding this plan of care. Physician Signature: Date:
--- NOTE | 2024-03-22 15:27 | HP.PTREVAL ---
Re-Evaluation Intro: Nghia Shahid MD, It has been my pleasure to treat LITO JAY over the last 15 visits for R ACL repair 02/03/24. Please see the progress note below for an update on the physical therapy plan of care! Subjective Subjective: I dont have any pain today Objective Objective/Function: R knee pain is 0/10. Increases to 3/10 at worst (squatting down) R knee MMT: flex= 30, ext= 33 #F R knee ROM: 0-2-140 degrees Pt is showing excellent progress at this time. Plan Plan Plan: 03/22/24- Continue per Desir protocol at this time Balance/Gait/Functional tests Balance/Special Test Scores Lower Extremity Functional Score: 53 Goals Goals Goal 1:: Decrease R knee pain x 50% to aid with sleep Goal Time Frame: 6-8 Weeks Goal Progress: Goal Met Goal 2:: Increase R knee ROM x 50 degrees to aid with ambulation Goal Time Frame: 6-8 Weeks Goal Progress: Goal Met Goal 3:: Increase R knee strength x 90% L knee to aid with stair negotiation Goal Time Frame: 6-8 Weeks Goal Progress: Progressing Goal 4:: I with HEP Goal Time Frame: 6-8 Weeks Goal Progress: Goal Met Goal 5:: Pt will be able to run for 10 min with no increase in pain Goal Progress: New goal Anticipated Interventions Anticipated Interventions Patient/Client Instruction: Educate patient on: Condition and Plan of Care For the Purpose of:: To improve self management Therapeutic Exercise to Include: Strength training, Endurance training, Flexibilty training, Gait and locomotor training, Passive ROM, Active ROM and Dynamic Lumbar Stabilization For the Purpose of:: To decrease pain, To increase ROM and To improve muscle performance and motor function Re-Evaluation Ending Re-evaluation ending: Please do not hesitate to contact me at [phone] by phone or if you have questions or concerns regarding this new plan of care! Sincerely, Stephan Burroughs, PT, ATC
--- NOTE | 2024-05-12 08:54 | HP.PTREVAL ---
Re-Evaluation Intro: Nghia Shahid MD, It has been my pleasure to treat LITO JAY over the last 21 visits for R ACL repair 02/03/24. Please see the progress note below for an update on the physical therapy plan of care! Subjective Subjective: Pt reports she is doing very well. No pain at rest Objective Objective/Function: R knee pain ranges from 0-5/10 R knee ROM 0-135 degrees R knee MMT: flex= 31, ext= 39 #F Pt is I with HEP Pt is progressing as expected Plan Plan Plan: Follow up once a month for HEP progression and reassessment. Balance/Gait/Functional tests Balance/Special Test Scores Lower Extremity Functional Score: 76 Goals Goals Goal 1:: Decrease R knee pain x 50% to aid with sleep Goal Time Frame: 6-8 Weeks Goal Progress: Goal Met Goal 2:: Increase R knee ROM x 50 degrees to aid with ambulation Goal Time Frame: 6-8 Weeks Goal Progress: Goal Met Goal 3:: Increase R knee strength x 90% L knee to aid with stair negotiation Goal Time Frame: 6-8 Weeks Goal Progress: Progressing Goal 4:: I with HEP Goal Time Frame: 6-8 Weeks Goal Progress: Goal Met Goal 5:: Pt will be able to run for 10 min with no increase in pain Goal Progress: Progressing Anticipated Interventions Anticipated Interventions Patient/Client Instruction: Educate patient on: Condition and Plan of Care For the Purpose of:: To improve self management Therapeutic Exercise to Include: Strength training, Endurance training, Flexibilty training, Gait and locomotor training, Passive ROM, Active ROM and Dynamic Lumbar Stabilization For the Purpose of:: To decrease pain, To increase ROM and To improve muscle performance and motor function Re-Evaluation Ending Re-evaluation ending: Please do not hesitate to contact me at [phone] by phone or if you have questions or concerns regarding this new plan of care! Sincerely, Stephan Burroughs, PT, ATC
--- NOTE | 2024-05-12 08:57 | HP.PTREVAL ---
Re-Evaluation Intro: Nghia Shahid MD, It has been my pleasure to treat LITO JAY over the last 21 visits for R ACL repair 02/03/24. Please see the progress note below for an update on the physical therapy plan of care! Subjective Subjective: Pt reports she is doing very well. No pain at rest Objective Objective/Function: R knee pain ranges from 0-5/10 R knee ROM 0-135 degrees R knee MMT: flex= 31, ext= 39 #F Pt is I with HEP Pt is progressing as expected Plan Plan Plan: Follow up once a month for HEP progression and reassessment. Balance/Gait/Functional tests Balance/Special Test Scores Lower Extremity Functional Score: 76 Goals Goals Goal 1:: Decrease R knee pain x 50% to aid with sleep Goal Time Frame: 6-8 Weeks Goal Progress: Goal Met Goal 2:: Increase R knee ROM x 50 degrees to aid with ambulation Goal Time Frame: 6-8 Weeks Goal Progress: Goal Met Goal 3:: Increase R knee strength x 90% L knee to aid with stair negotiation Goal Time Frame: 6-8 Weeks Goal Progress: Progressing Goal 4:: I with HEP Goal Time Frame: 6-8 Weeks Goal Progress: Goal Met Goal 5:: Pt will be able to run for 10 min with no increase in pain Goal Progress: Progressing Anticipated Interventions Anticipated Interventions Patient/Client Instruction: Educate patient on: Condition and Plan of Care For the Purpose of:: To improve self management Therapeutic Exercise to Include: Strength training, Endurance training, Flexibilty training, Gait and locomotor training, Passive ROM, Active ROM and Dynamic Lumbar Stabilization For the Purpose of:: To decrease pain, To increase ROM and To improve muscle performance and motor function Re-Evaluation Ending Re-evaluation ending: Please do not hesitate to contact me at [phone] by phone or if you have questions or concerns regarding this new plan of care! Sincerely, Stephan Burroughs, PT, ATC
--- NOTE | 2024-10-12 08:34 | HP.PT.NRP ---
Patient Information Patient Information: LITO JAY was seen in my office for initial evaluation on 02/06/24. The following Plan of Care was established for this patient: POC Established Initial Frequency: 2-3x /Week Initial Duration: 4-6 Weeks Anticipated Interventions Patient/Client Instruction: Educate patient on: Condition and Plan of Care For the Purpose of:: To improve self management Therapeutic Exercise to Include: Strength training, Endurance training, Flexibilty training, Gait and locomotor training, Passive ROM, Active ROM and Dynamic Lumbar Stabilization For the Purpose of:: To decrease pain, To increase ROM and To improve muscle performance and motor function Last Seen Last Seen: This patient was last seen in our office . Pertinent comments regarding their Physical therapy will appear below: Pt has not returned in greater than 30 days and is discontinued at this time. At this point I will be discontinuing this patient from physical therapy. I would be happy to see this patient again in the future if found appropriate by the physician. Thank you! Stephan Burroughs, PT, ATC Balance/Gait/Functional tests Balance/Special Test Scores Lower Extremity Functional Score: 76
== END 2024-07-05 19:00 | disposition home or self-care (01) ==
LOC: PT 08:00
PROVIDERS: PCP Family Medicine; Referring Provider Orthopaedic Surgery; Visit Provider Orthopaedic Surgery
DX: S83.511D Sprain of anterior cruciate ligament of right knee, subsequent encounter (principal)
CPT/HCPCS: 97110; 97161; 97530